=== PATIENT | female | born 1975 | race African-American/Black ===

== ENCOUNTER 2017-02-07 06:14 | Emergency (ER) | payer SELFPAY | END 2017-02-07 06:50 | disposition home or self-care (01) | LOC: MADERS 06:14 | DX: J06.9 Acute upper respiratory infection, unspecified (principal) | CPT/HCPCS: 99282 ==

== ENCOUNTER 2017-04-03 23:04 | Emergency (ER) | payer SELFPAY ==
[2017-04-04] MEDS ORDERED: Neomycin/Polymyxin/HC Otic Solution 10 ML BOT ONE (00:03)
[2017-04-04] MEDS ORDERED: Cephalexin 500 MG CAP ONE (00:09)
[2017-04-04] MEDS ORDERED: HYDROcodone/Acetaminophen 10/325 mg Tablet ONE (00:09)
[2017-04-04] MEDS ORDERED: Naproxen 500 MG TAB ONE (00:09)
== END 2017-04-04 01:22 | disposition home or self-care (01) ==
LOC: MADERS 23:04
DX: H60.501 Unspecified acute noninfective otitis externa, right ear (principal)
CPT/HCPCS: 99282

== ENCOUNTER 2018-06-03 20:08 | Emergency (ER) | payer BC | END 2018-06-03 20:43 | disposition home or self-care (01) | LOC: MADERS 20:08 | DX: S86.912A Strain of unspecified muscle(s) and tendon(s) at lower leg level, left leg, initial encounter (principal); X58.XXXA Exposure to other specified factors, initial encounter | CPT/HCPCS: 99281 ==

== ENCOUNTER 2020-09-03 08:31 | Emergency (ER) | payer BC | END 2020-09-03 09:50 | disposition home or self-care (01) | LOC: MADERS 08:31 | DX: M76.62 Achilles tendinitis, left leg (principal) | CPT/HCPCS: 99283 ==

== ENCOUNTER 2020-09-09 10:25 | Emergency (ER) | payer BC ==
[2020-09-10 18:58] LABS: SARS-CoV-2 PCR by NAA DETECTED (NotDetected)
== END 2020-09-09 11:20 | disposition home or self-care (01) ==
LOC: MADERS 10:25
DX: U07.1 COVID-19 (principal)
CPT/HCPCS: 99283; U0003; U0005

== ENCOUNTER 2022-11-13 21:51 | Emergency (ER) | payer BC ==
[2022-11-13 22:40] LABS: Bilirubin Negative (Negative); Blood, Urine Negative (Negative); Clarity Hazy (Clear); Glucose, Urine (Dipstick) Negative (Negative); Ketone, Urine Negative (Negative); Leukocyte Trace (Negative); Nitrite Negative (Negative); Protein, Urine (Dipstick) Negative (Neg-Trace); RBC/HPF 0-3 HPF (0-3); pH, Urine 7.5 (5.0-9.0)
[2022-11-13 22:41] LABS: Bacteria/HPF 2+ HPF (None Seen); CAUTI Indications for Culture Pelvic or flank pain; Pregnancy Test - Urine (BHCG) Negative (Negative); Pregu Control Background? CLEAR/WHITE (CLR/WHITE); Pregu Control Bar Appear? YES (CONTROL BAR); Urine Culture Reflex No No
[2022-11-13] MEDS ORDERED: Dicyclomine 20 MG/2 ML VIAL ONE (22:45)
[2022-11-13] MEDS ORDERED: Ketorolac Tromethamine 30 MG/ML VIAL ONE (22:45)
[2022-11-13] MEDS ORDERED: Simethicone Chewable 80 MG TAB ONE (22:45)
[2022-11-13] MEDS ORDERED: Lactated Ringer's 1,000 ML ONE (22:45)
[2022-11-13 23:02] LABS: #Basophils 0.1 thou/uL (0.0-0.2); #Eosinphils 0.1 thou/uL (0.0-0.7); #Lymphocytes 2.2 thou/uL (1.20-3.40); #Monocytes 0.6 thou/uL (0.11-0.59); #Neutrophils 4.7 thou/uL (1.40-6.50); %Basophils 1.4 % (0.0-1.0); %Eosinophils 1.9 % (0.0-10.0); %Lymphocytes 28.4 % (21.0-51.0); %Monocytes 8.2 % (0.0-10.0); %Neutrophils 60.1 % (42.0-75.0); Hematocrit 34.3 % (36.0-47.0); Mean Corpuscular HGB CONC 32.1 g/dL (32.0-36.0); Mean Corpuscular Hemoglobin 26.2 pg (27.0-31.0); Mean Corpuscular Volume 81.7 fl (78.0-98.0); Mean Platelet Volume 8.3 fL (7.4-10.4); Platelet Count 449 10x3/uL (130-400); RBC Distribution Width 13.8 % (11.5-14.5); White Blood Cell (WBC) Count 7.7 10x3/uL (4.8-10.8)
[2022-11-13 23:20] LABS: ALT (SGPT) 13 U/L (8-55); AST (SGOT) 18 U/L (5-34); Albumin 4.4 g/dL (3.5-5.0); Alkaline Phosphatase 69 U/L (40-110); Anion Gap 13 mmol/L (10-20); BUN (Urea Nitrogen) 10 mg/dL (7.0-18.7); Bilirubin, Total 0.3 mg/dL (0.2-1.2); Calc. Creatinine Clearance 0 mL/min (70-130); Calcium 9.6 mg/dL (7.8-10.44); Carbon Dioxide 27 mmol/L (22-29); Chloride 104 mmol/L (98-107); Estimated GFR 84; Globulin 3.8 g/dL (2.4-3.5); Glucose 117 mg/dL (70-105); Lipase 22 U/L (8-78); Potassium 3.1 mmol/L (3.5-5.1); Protein, Total 8.2 g/dL (6.0-8.3); Sodium 141 mmol/L (136-145)
[2022-11-13] MEDS ORDERED: Morphine 4 MG/ML VIAL ONE (23:42)
[2022-11-13] MEDS ORDERED: cefTRIAXone (ROCEPHIN) 1 GM VIAL ONE (23:43)
[2022-11-13] MEDS ORDERED: Potassium Chloride 20 MEQ TAB ONE (23:43)
[2022-11-14 17:26] LABS: Chlamydia by PCR, Vaginal Swab Not Detected (NotDetected); GC by PCR, Vaginal Swab Not Detected (NotDetected)
== END 2022-11-14 00:25 | disposition short-term general hospital (02) ==
LOC: MADERS 21:51
DX: R10.2 Pelvic and perineal pain (principal); R10.31 Right lower quadrant pain; R93.89 Abnormal findings on diagnostic imaging of other specified body structures; R10.33 Periumbilical pain
CPT/HCPCS: 74177; 80053; 81001; 81025; 83605; 83690; 83735; 85025; 87086; 87480; 87491; 87510; 87591; 87660; 94760; 96361; 96372; 96374; 96375; J0696; J1885; J2270; J7120

== ENCOUNTER 2023-03-02 19:42 | Emergency (ER) | payer BC ==
[2023-03-02] MEDS ORDERED: Ibuprofen 800 MG TAB ONE (20:03)
[2023-03-02] MEDS ORDERED: Acetaminophen 500 MG TAB ONE (20:03)
== END 2023-03-02 21:17 | disposition home or self-care (01) ==
LOC: MADERS 19:42
DX: J10.1 Influenza due to other identified influenza virus with other respiratory manifestations (principal)
CPT/HCPCS: 71045; 87081; 87430; 87804; 99283

== ENCOUNTER 2024-11-26 22:41 | Emergency (ER) | payer BC | END 2024-11-26 23:21 | disposition home or self-care (01) | LOC: MADERS 22:41 | DX: G62.9 Polyneuropathy, unspecified (principal) | CPT/HCPCS: 99283 ==